=== PATIENT | male | born 1975 | race Asian ===

== ENCOUNTER 2019-11-10 12:16 | Emergency (ER) | payer MEDICAID ==
[~2019-11-10] VITALS: Ht 180.3 cm; Wt 77.6 kg
[2019-11-10 12:22] VITALS: BP 140/101
--- NOTE | 2019-11-10 12:30 | NUR ---
INITIAL CONTACT WITH PATIENT RECEIVED A 44/M FROM TRIAGE FOR C/O ABSCESS TO RT LOWER BUTTOCK. PT REPORTS INITALLY SITE WAS SMALL, RED AND PIMPLE LIKE AND OVER 2 WEEKS GREW IN SIZE AND REDNESS. +DRAINAGE NOTED. IN BED FOR MSE. NEGATIVE COVID SCREEN.
[2019-11-10] MEDS ORDERED: LIDOCAINE/EPI 1% 1:100000 20 ML VIAL INJ ONE (12:55)
[2019-11-10] MEDS ORDERED: SULFAMETH/TRIMETH DS 800/160MG 1 TAB PO ONE (12:55)
[2019-11-10] MEDS ORDERED: CEPHALEXIN 500 MG CAP PO ONE (12:55)
--- NOTE | 2019-11-10 13:08 | NUR ---
PHYSICIAN ORTIZ AT BEDSIDE
[2019-11-10] MEDS ORDERED: KETOROLAC 30 MG/ML VIAL IM ONE (13:30)
--- NOTE | 2019-11-10 13:36 | NUR ---
MEDICATED ORDERED FOR PAIN. WILL REASSESS.
--- NOTE | 2019-11-10 14:00 | NUR ---
Patient discharged with v/s stable. Written and verbal after care instructions given and explained. Patient alert, oriented and verbalized understanding of instructions. Ambulatory with steady gait. All questions addressed prior to discharge. ID band removed. Patient advised to follow up with PMD. Rx of BACTRIM, KEFELX, MOTRIN given. Patient educated on indication of medication including possible reaction and side effects. Opportunity to ask questions provided and answered.
[2019-11-10 14:14] VITALS: BP 134/94
== END 2019-11-10 14:00 | disposition home or self-care (01) ==
LOC: EDBD 12:16 → MED 12:16
DX: L02.31 Cutaneous abscess of buttock (principal)
CPT/HCPCS: 10060; 96372; 99283; J1885; J2001

== ENCOUNTER 2019-11-12 13:09 | Emergency (ER) | payer MEDICAID ==
[~2019-11-12] VITALS: Ht 177.8 cm; Wt 78.0 kg
--- NOTE | 2019-11-12 13:17 | NUR ---
PT AMBULATED TO BED 7, STEADY GAIT.
[2019-11-12 13:19] VITALS: BP 123/88
--- NOTE | 2019-11-12 13:25 | NUR ---
44 Y/M PRESENTS TO ED FOR FOLLOW UP ON ABCESS/ I&D X 3 DAY. PT WAS SEEN IN ED X 2 DAYS AGO, PACKING WAS PLACED AND PT REPORTS PACKING FELL OUT YESTERDAY. PT REPORTS FEELING MUCH BETTER. PAIN 3/10 NON RADIATING. PT COMPLIANT WITH 2 ATB. I&D ABCESS ON R INNER BUTTOCK. WOUND STILL OPEN. PURULENT DRAINAGE, EDEMA AND ERYTHEMA TO SURROUNDING AREA. PT DENEIS FEVER AND CHILLS. PT A &O X 4. RR EVEN UNLABORED. ABD SOFT, DENIES N/V/D. NKDA PMH- DENIES
--- NOTE | 2019-11-12 13:32 | NUR ---
DR. CUMMINGS AT BEDSIDE.
[2019-11-12 13:49] VITALS: BP 123/88
--- NOTE | 2019-11-12 13:50 | NUR ---
Patient discharged with v/s stable. Written and verbal after care instructions given and explained. Patient verbalized understanding. Ambulatory with steady gait. All questions addressed prior to discharge. Advised to follow up with PMD.
== END 2019-11-12 13:50 | disposition home or self-care (01) ==
LOC: MED 13:09 → EDBD 13:09 → MED 13:50
DX: L02.31 Cutaneous abscess of buttock (principal); Z48.01 Encounter for change or removal of surgical wound dressing
CPT/HCPCS: 99281